=== PATIENT | male | born 1960 | race Caucasian/White ===

== ENCOUNTER 2017-03-16 12:58 | Emergency (ER) | payer MEDICAID ==
[2017-03-16] MEDS ORDERED: ONDANSETRON 4 MG/2 ML VIAL IVP ONE (14:33)
[2017-03-16 14:37] LABS: ANION GAP 18 mEq/L (8-16); CALCIUM 9.8 mg/dL (8.5-10.4); CARBON DIOXIDE 19 mEq/l (22-31); CHLORIDE 101 mEq/L (97-110); CREATININE 0.8 mg/dL (0.7-1.3); GLOMERULAR FILTRATION RATE > 60; GLUCOSE 92 mg/dL (70-100); POTASSIUM 4.2 mEq/L (3.5-5.2); SODIUM 138 mEq/L (134-144)
--- NOTE | 2017-03-16 14:37 | EDPHY ---
General Narrative: CHIEF COMPLAINT: Abdominal pain HISTORY OF PRESENT ILLNESS: Patient complains of lower abdominal pain. This started on Tuesday. It has been constant duration. Moderate to severe. Associated with some constipation mild nausea. No vomiting. No bright red blood per rectum. No chest pain or shortness of breath. No upper abdominal pain. Heavy drinking on Tuesday with some fast food eating. He feels that may been related. He tried some laxatives and did produce some clear liquid stool but no resolution of symptoms. No urinary complaints. No other associated complaints or modifying factors. Normal colonoscopy with small polyps removed 5 years ago. REVIEW OF SYSTEMS: Ten systems reviewed and are negative unless otherwise noted in the HPI PCP: Dr. Root SPECIALISTS: None PAST MEDICAL HISTORY: Hypertension PAST SURGICAL HISTORY: None SOCIAL HISTORY: Former smoker, quit 6 years ago. Occasional alcohol marijuana use. FAMILY HISTORY: Noncontributory EXAMINATION General Appearance: Alert, no distress Head: normocephalic, atraumatic Eyes: Pupils equal and round, no conjunctival pallor or injection ENT, Mouth: Mucous membranes moist. Airway patent Neck: Normal inspection, supple, non-tender Respiratory: Lungs are clear to auscultation. No wheeze, rhonchi or crackles Cardiovascular: Regular rate and rhythm. No murmur Gastrointestinal: Obese abdomen is soft. No tympany rigidity. There is tenderness in the lower abdominal quadrants. No rigidity. Mild guarding in the suprapubic region. Neurological: A&O, nonfocal Skin: Warm and dry, no rash. No petechiae or purpura. No ecchymosis of the abdomen Extremities: Nontender, no pedal edema. Psychiatric: Mood and affect normal DIFFERENTIAL DIAGNOSES: Including but not limited to diverticulitis, colitis, constipation, obstipation , small-bowel obstruction, colonic obstruction, volvulus, bladder calculus MDM: 2:35 p.m. Lower abdominal pain of 2 days duration. No flank pain. Obese abdomen difficult to definitively examine. I have ordered CT scan of the abdomen pelvis. CBC and chemistry pending. I have added a lipase, urinalysis and liver function. Pain medication ordered. He is in no acute distress and resting relatively comfortably at this time. 3:30 p.m. Laboratory studies reveal a mild leukocytosis. Chemistries unremarkable. CT scan pending. 3:[address] as reviewed by me reveal some diverticulitis with stranding but no abscess. Interpretation pending. 4:05 p.m. Contacted by radiologist Dr. Randhawa. CT scan findings discussed. There is diverticulitis without perforation or abscess. Incidental note of a 5 mm right middle lobe nodule recommend routine follow-up for this and surveillance. Also incidental 3.6 nodule on the right adrenal gland, likely adenoma that will also need outpatient follow-up. Also a bladder cyst or diverticulum that will need outpatient follow-up. 4:15 p.m. Patient re-evaluated. I discussed the findings of the CT scan including the incidental note. I recommend that he follow up with Dr. Root to monitor these. He voices understanding of this. I also discussed the diverticulitis and the need for antibiotic therapy. I offered admission to the hospital for pain control antibiotic therapy. He has declined. He would like to go home. I do feel that he is stable for discharge home, but we had a very lengthy discussion regarding possibility outpatient failure and worsening of his condition. He is willing to assume these risks and go home with pain medication, Cipro and Flagyl. We discussed ED precautions and is comfortable with this plan. He will follow up with primary care physician for all the above. He will also follow up with general surgeon. Discharged home stable condition. - History Smoking Status: Never smoked - Objective Vital Signs: Initial Vital Signs Temperature (C) 100.0 F 03/16/17 13:03 Heart Rate 77 03/16/17 13:03 Respiratory Rate 18 03/16/17 13:03 Blood Pressure 142/93 H 03/16/17 13:03 O2 Sat (%) 95 03/16/17 13:03 O2 Delivery Mode Room Air Allergies/Adverse Reactions: penicillin V potassium [From Pen-Vee K] Allergy (Verified 03/16/17 13:02) Home Medications: Medication Instructions Recorded Atorvastatin Calcium 03/16/17 Ciprofloxacin [Cipro] 500 mg PO BID #20 tab 03/16/17 Ciprofloxacin [Cipro] 500 mg PO TID #30 tab 03/16/17 Lisinopril 03/16/17 oxyCODONE HCL/ACETAMINOPHEN 1 each PO Q4-6PRN PRN #15 tablet 03/16/17 [Percocet 5-325 mg Tablet] Laboratory Results: Laboratory Results 03/16/17 14:05 03/16/17 14:05 03/16/17 03/16/17 14:05 14:05 WBC 15.66 10^3/uL H 10^3/uL (3.80-9.50) RBC 5.38 10^6/uL 10^6/uL (4.40-6.38) Hgb 17.5 g/dL g/dL (13.7-17.5) Hct 47.6 % % (40.0-51.0) MCV 88.5 fL fL (81.5-99.8) MCH 32.5 pg pg (27.9-34.1) MCHC 36.8 g/dL H g/dL (32.4-36.7) RDW 12.8 % % (11.5-15.2) Plt Count 246 10^3/uL 10^3/uL (150-400) MPV 10.3 fL fL (8.7-11.7) Neut % (Auto) 82.5 % H % (39.3-74.2) Lymph % (Auto) 7.6 % L % (15.0-45.0) [place] % (Auto) 8.3 % % (4.5-13.0) Eos % (Auto) 0.8 % % (0.6-7.6) Baso % (Auto) 0.5 % % (0.3-1.7) Nucleat RBC Rel Count 0.0 % % (0.0-0.2) Absolute Neuts (auto) 12.91 10^3/uL H 10^3/uL (1.70-6.50) Absolute Lymphs (auto) 1.19 10^3/uL 10^3/uL (1.00-3.00) Absolute Monos (auto) 1.30 10^3/uL H 10^3/uL (0.30-0.80) Absolute Eos (auto) 0.13 10^3/uL 10^3/uL (0.03-0.40) Absolute Basos (auto) 0.08 10^3/uL 10^3/uL (0.02-0.10) Absolute Nucleated RBC 0.00 10^3/uL 10^3/uL (0-0.01) Immature Gran % 0.3 % % (0.0-1.1) Immature Gran # 0.05 10^3/uL 10^3/uL (0.00-0.10) Sodium 138 mEq/L mEq/L (134-144) Potassium 4.2 mEq/L mEq/L (3.5-5.2) Chloride 101 mEq/L mEq/L (97-110) Carbon Dioxide 19 mEq/l L mEq/l (22-31) Anion Gap 18 mEq/L H mEq/L (8-16) BUN 12 mg/dL mg/dL (7-23) Creatinine 0.8 mg/dL mg/dL (0.7-1.3) Estimated GFR > 60 Glucose 92 mg/dL mg/dL (70-100) Calcium 9.8 mg/dL mg/dL (8.5-10.4) Total Bilirubin 1.4 mg/dL mg/dL (0.1-1.4) Conjugated Bilirubin 0.3 mg/dL mg/dL (0.0-0.5) Unconjugated Bilirubin 1.1 mg/dL mg/dL (0.0-1.1) AST 42 IU/L IU/L (17-59) ALT 72 IU/L IU/L (21-72) Alkaline Phosphatase 119 IU/L IU/L (38-126) Total Protein 7.1 g/dL g/dL (6.3-8.2) Albumin 4.8 g/dL g/dL (3.5-5.0) Lipase 88 IU/L IU/L (23-300) Medications Given: Discontinued Medications Morphine Sulfate (Morphine) 6 mg IVP EDNOW ONE Stop: 03/16/17 14:34 Last Admin: 03/16/17 14:58 Dose: 6 mg Ondansetron HCl (Zofran) 4 mg IVP EDNOW ONE Stop: 03/16/17 14:34 Last Admin: 03/16/17 14:58 Dose: 4 mg Departure - Departure Disposition: Home, Routine, Self-Care Clinical Impression: Sigmoid diverticulitis, Adrenal nodule, Lung nodule < 6cm on CT Condition: Good Instructions: Diverticulitis (ED), Diverticulitis Diet (ED), Pulmonary Nodules (ED) Additional Instructions: 1. Pain medication as prescribed as needed 2. Diverticular diet as printed 3. Antibiotics as prescribed to completion 4. Contact primary care physician for follow-up for the diverticulitis, the pulmonary nodule, the adrenal nodule 5. ED precautions as discussed Referrals: Genoveva Root [Primary Care Provider] - As per Instructions Prescriptions: Ciprofloxacin [Cipro] 500 mg PO BID #20 tab Ciprofloxacin [Cipro] 500 mg PO TID #30 tab oxyCODONE HCL/ACETAMINOPHEN [Percocet 5-325 mg Tablet] 1 each PO Q4-6PRN PRN # 15 tablet PRN Reason: Pain, Breakthrough
[2017-03-16 14:46] LABS: % IMMATURE GRANULYOCYTES 0.3 % (0.0-1.1); ABSOLUTE IMMATURE GRANULOCYTES 0.05 10^3/uL (0.00-0.10); ADD DIFF? NO; ADD MORPH? NO; ADD SCAN? NO; ATYPICAL LYMPHOCYTE FLAG 0 (0-99); FRAGMENT RBC FLAG 0 (0-99); HEMATOCRIT 47.6 % (40.0-51.0); HEMOGLOBIN 17.5 g/dL (13.7-17.5); LEFT SHIFT FLG 0 (0-99); LIPEMIA HEMOLYSIS FLAG 90 (0-99); MEAN CELL HEMOGLOBIN 32.5 pg (27.9-34.1); MEAN CELL HEMOGLOBIN CONCENTR. 36.8 g/dL (32.4-36.7); MEAN CELL VOLUME 88.5 fL (81.5-99.8); MEAN PLATELET VOLUME 10.3 fL (8.7-11.7); PLATELET CLUMPS FLAG 0 (0-99); PLATELET COUNT 246 10^3/uL (150-400); RED BLOOD CELL COUNT 5.38 10^6/uL (4.40-6.38); RED CELL DISTRIBUTION WIDTH 12.8 % (11.5-15.2)
[2017-03-16 15:03] LABS: ALANINE AMINOTRANSFERASE 72 IU/L (21-72); ALBUMIN 4.8 g/dL (3.5-5.0); ALKALINE PHOSPHATASE 119 IU/L (38-126); ASPARTATE AMINOTRANSFERASE 42 IU/L (17-59); BILIRUBIN,TOTAL 1.4 mg/dL (0.1-1.4); BILIRUBIN-CONJUGATED 0.3 mg/dL (0.0-0.5); BILIRUBIN-UNCONJUGATED 1.1 mg/dL (0.0-1.1); TOTAL PROTEIN 7.1 g/dL (6.3-8.2)
[2017-03-16 15:16] VITALS: RESP 16
[2017-03-16] MEDS ORDERED: IOPAMIDOL (ISOVUE-300) 100 ML BTL ONE (15:26)
[2017-03-16 16:26] VITALS: PULSE 74
[2017-03-16 16:59] LABS: COLOR YELLOW; LEUKOCYTE ESTERASE,URINE NEGATIVE (NEGATIVE); MUCUS TRACE /lpf (NONE-1+); NITRITE,URINE NEGATIVE (NEGATIVE)
[2017-03-16] MEDS ORDERED: OXYCODONE/APAP 5/325 TAB ONE (17:10)
[2017-03-16] MEDS ORDERED: OXYCODONE/APAP 5/325 TAB PO ONE (17:13)
[2017-03-16 17:22] VITALS: BP 125/70; TEMP 98.4; O2SAT 96
== END 2017-03-16 17:22 | disposition home or self-care (01) ==
DX: K57.32 Diverticulitis of large intestine without perforation or abscess without bleeding (principal); E27.8 Other specified disorders of adrenal gland; R91.1 Solitary pulmonary nodule; I10 Essential (primary) hypertension; Z87.891 Personal history of nicotine dependence
CPT/HCPCS: 96374; J2405; Q9967

== ENCOUNTER 2018-04-05 12:10 | Emergency (ER) | payer MEDICAID ==
--- NOTE | 2018-04-05 13:31 | EDPHY ---
H & P Stated Complaint: fell off skateboard hit head, R wrist, L shoulder pain -no loc no helmet Time Seen by Provider: 04/05/18 13:18 HPI/ROS: CHIEF COMPLAINT: Fall off of skateboard, multiple complaints HISTORY OF PRESENT ILLNESS: 58-year-old male via private vehicle, no anticoagulant use history, states yesterday at 5:45 p.m. After having drank some alcohol he was riding skateboard, helmeted, sustained a mechanical fall impacting his left frontal region with no loss of consciousness, no amnesia. He woke complaining of right wrist, left elbow, left shoulder, left hip pain. He is able to bear weight albeit with pain to the greater trochanter region. He denies: Nausea vomiting, midline C-spine pain, peripheral paresthesia, weakness, numbness, abdominal pain or trauma, chest pain or trauma, dyspnea. PRIMARY CARE PROVIDER: [facility] Genoveva Root REVIEW OF SYSTEMS: 10 systems reviewed and negative with the exception of the elements mentioned in the history of present illness PAST MEDICAL/SURGICAL HISTORY: no anticoagulant use, no relevant medical/ surgical history SOCIAL HISTORY: Positive for alcohol use at time of incident PHYSICAL EXAM 1) GENERAL: Well-developed, well-nourished, alert and oriented. Appears to be in no acute distress. Answering questions appropriately. GCS 15 2) HEAD: Normocephalic, left frontal abrasion. No hematoma. 3) HEENT: Pupils equal, round, reactive to light bilaterally. Negative Horners. Nasopharynx, oropharynx, clear. No deformity or angulation of nose. No septal hematoma. No rhinorrhea. No oral trauma. Ears bilaterally with normal tympanic membranes. No hemotympanum. No fluid or blood in the external auditory canal. No raccoon eyes. No Sharif sign. Teeth are normally aligned with no gross malocclusion, TMJ bilaterally nontender, facial bones nontender including the zygomatic arch, maxilla mandible. 4) NECK: No cervical collar is on. Posterior cervical spine is nontender, no stepoff, no effusion. Full range of motion which does not elicit any midline cervical spine pain, no posterior midline tenderness, no step-off. 5) LUNGS: Clear to auscultation bilaterally, no wheezes, no rhonchi, no retractions. No obvious signs of trauma. No chest wall pain. No flaring, no grunting. Moving symmetrically. No crepitus. 6) HEART: [Regular rate and rhythm, 7) ABDOMEN: No guarding, no rebound, no focal tenderness, no peritoneal signs, no signs of trauma, no ecchymosis 8) MUSCULOSKELETAL: Left upper extremity: Tender to palpation left elbow with limited range of motion secondary to pain. No visible trauma. Tender to palpation left shoulder with no visible signs of trauma. Limited range of motion secondary to pain. Otherwise distal pulses are brisk with normal coloration. Wrist hand nontender. Right upper extremity: Tender to palpation right distal radius and anatomic snuffbox with radial ulnar median nerve function intact. No visible signs of trauma. No abrasion or laceration or puncture wound. Otherwise proximally nontender. Left lower extremity: Tender to palpation left greater trochanter region with no shortening no malrotation, limited range of motion secondary to pain. No inguinal pain with range of motion. Distal DP PT pulses present and brisk. Right lower extremity: No signs of trauma no tenderness. 9) BACK: No midline vertebral tenderness, no fluctuance, no step-off, no obvious trauma, no visual or palpable abnormality. 10) SKIN: No laceration. Left frontal abrasion 11) NEURO: Awake, alert, and oriented to person, place and time. Answers questions appropriately. There were no obvious focal neurologic abnormalities. No cerebellar dysfunction. Cranial nerves 2 through to 12 intact. Normal steady gait. Upper and lower extremities bilaterally with strength 5 / 5, reflexes 2+. DIFFERENTIAL DIAGNOSIS: In no particular order including but not limited to fracture, sprain, strain, dislocation - Personal History Current Tetanus/Diphtheria Vaccine: Yes Current Tetanus Diphtheria and Acellular Pertussis (TDAP): Yes Tetanus Vaccine Date: 2014 - Medical/Surgical History Hx Asthma: No Hx Chronic Respiratory Disease: No Hx Diabetes: No Hx Cardiac Disease: No Hx Renal Disease: No Hx Cirrhosis: No Hx Alcoholism: No Hx HIV/AIDS: No Hx Splenectomy or Spleen Trauma: No Other PMH: L WRIST FX/HTN, hyperlipdemia, R humerus fx - Social History Smoking Status: Current some day smoker Constitutional: Initial Vital Signs Heart Rate 76 04/05/18 12:20 Respiratory Rate 18 04/05/18 12:20 Blood Pressure 155/89 H 04/05/18 12:20 O2 Sat (%) 97 04/05/18 12:20 O2 Delivery Mode Room Air O2 (L/minute) 36.7 Allergies/Adverse Reactions: penicillin V potassium [From Pen-Vee K] Allergy (Verified 03/16/17 13:02) Home Medications: Medication Instructions Recorded Atorvastatin Calcium 04/05/18 Lisinopril 04/05/18 Medical Decision Making - Diagnostics Imaging Results: Imaging Impressions Wrist X-Ray 04/05/18 12:44 Impression: No acute osseous findings. Elbow X-Ray 04/05/18 13:37 Impression: Minimally displaced medial epicondyle avulsion fracture. Hip X-Ray 04/05/18 13:37 Impression: No acute osseous findings. Shoulder X-Ray 04/05/18 13:37 Impression: No acute findings in the shoulder. Images reviewed myself Procedures: Procedure: Splint A left upper extremity sling and right wrist Velcro thumb spica splint was applied by ER remote sensing technician. After application of the splint I returned and re- examined the patient. The splint was adequately immobilizing the joint and distal to the splint the patient's circulation and sensation were intact. Patient shows no signs of compartment syndrome. Was given orthopedic precautions. ED Course/Re-evaluation: 1:30 p.m.: Negative American head and C-spine decision-making tools. I do not think that imaging of the head and her C-spine indicated at this time. Will obtain x-rays the peripheral musculoskeletal system. 2:31 p.m.: Re-evaluation. Discussed with the patient his imaging results. He has an avulsion fracture of the left elbow. He has been placed in a splint. Discussed limitations of x-ray. Stressed the importance of follow-up with orthopedics. Given this follow-up information. He is answering questions appropriately. He is given my usual and customary orthopedic precautions instructions. Care of patient under supervision of secondary supervising physician Dr Ojeda . Departure - Departure Disposition: Home, Routine, Self-Care Clinical Impression: Left hip pain Fall from skateboard Qualifiers: Encounter type: initial encounter Qualified Code(s): V00.131A - Fall from skateboard, initial encounter Left elbow fracture Qualifiers: Encounter type: initial encounter Fracture type: closed Qualified Code(s): S42.402A - Unspecified fracture of lower end of left humerus, initial encounter for closed fracture Sprain of left shoulder Qualifiers: Encounter type: initial encounter Shoulder sprain type: unspecified sprain Qualified Code(s): S43.402A - Unspecified sprain of left shoulder joint, initial encounter Right wrist sprain Qualifiers: Encounter type: initial encounter Qualified Code(s): S63.501A - Unspecified sprain of right wrist, initial encounter Condition: Good Instructions: Hip Pain (ED), Elbow Fracture (ED), Shoulder Sprain (ED), Wrist Sprain (ED) Additional Instructions: Return to the ER immediately if you experience discoloration, have worsening pain, numbness, tingling, or any other symptoms that concern you. If you received x-rays in the emergency department today, be advised, that ligamentous , tendon, muscular, and other non-bony injury cannot be fully ruled out. Try to keep your affected extremity elevated above the level of your chest, and keep cold packs on the affected area, for the next 48 hours. Adult Pain & Fever Control: We recommend Acetaminophen (Tylenol) and Ibuprofen (Motrin,Advil) for pain and fever control. When fever is high or pain severe, both drugs can be used at the same time, but at different intervals. Please note the time differences. Your dose is: Acetaminophen 650mg every 4 to 6 hours Ibuprofen 600mg every 6 hours with food OR Note: do not take Acetaminophen with Hydrocodone (Vicodin, Lortab) or Oycodone (Percocet). These medications also contain Acetaminophen. No more than 3000mg of Acetaminophen should be taken in 24 hours (for an adult). Referrals: Yung Olguin MD [Medical Doctor] - 1-2 days without fail
[2018-04-05] MEDS ORDERED: IBUPROFEN 600 MG TAB PO ONE (14:34)
[2018-04-05 14:44] VITALS: BP 149/80
== END 2018-04-05 14:42 | disposition home or self-care (01) ==
DX: S42.402A Unspecified fracture of lower end of left humerus, initial encounter for closed fracture (principal); M25.512 Pain in left shoulder; M25.531 Pain in right wrist; V00.131A Fall from skateboard, initial encounter; Y92.480 Sidewalk as the place of occurrence of the external cause
CPT/HCPCS: A4565; L3807

== ENCOUNTER 2018-08-09 17:04 | Emergency (ER) | payer MEDICAID ==
--- NOTE | 2018-08-09 17:27 | EDPHY ---
H & P Time Seen by Provider: 08/09/18 17:27 HPI/ROS: CHIEF COMPLAINT: Abdominal pain HISTORY OF PRESENT ILLNESS: History of diverticulitis February of 2017 feels identical. About 2 weeks ago he had similar symptoms but he thought it was due to eating too many red meats takes and went on a kendrick burrito diet negative better. 2 days ago the symptoms return. Left lower quadrant abdominal pain associated with nausea, intermittent diarrhea and then constipation. Symptoms moderate, do not radiate, no urinary symptoms. Not better or worse with anything. REVIEW OF SYSTEMS: Eye: no change in vision ENT: no sore throat Cardiac: no chest pain or syncope Pulmonary: no cough or SOB Abdomen: HPI Musculoskeletal: no back pain Skin: no rash Neuro: no headache Constitutional: no fever : no urinary symptoms A comprehensive 10 point review of systems is otherwise negative aside from elements mentioned in the history of present illness. PAST MEDICAL HISTORY: Diverticulitis February of 2017, hyperlipidemia, left wrist and right humerus fracture Social history: General Appearance: Alert and conversant, cooperative. Eyes: No scleral icterus. ENT, Mouth: Slightly dry mucous membranes. Respiratory: Normal respiratory effort, breath sounds equal, lungs are clear to auscultation. Cardiovascular: Regular rate and rhythm. Gastrointestinal: Left lower quadrant tenderness without rebound or guarding, bowel sounds present. Neurological: Alert, face symmetric, normal motor and sensory in extremities. Skin: Warm and dry, no rashes. Musculoskeletal: No peripheral edema. Psychiatric: Not agitated. Emergency Department course/MDM: Likely diverticulitis. At this point low suspicion for perforation or abscess, low suspicion for appendicitis or bowel obstruction. Not febrile or tachycardic and no rebound or guarding. Patient would prefer treatment without further imaging which I think is reasonable. Normal saline 2 L IV, fentanyl 100 mcg and Zofran 4, Cipro 500 and Flagyl 500 orally. 1900: Feels better stable for discharge. Smoking Status: Current some day smoker Constitutional: Initial Vital Signs Temperature (C) 37.4 C 08/09/18 17:17 Heart Rate 70 08/09/18 17:17 Respiratory Rate 18 08/09/18 17:17 Blood Pressure 119/87 H 08/09/18 17:17 O2 Sat (%) 97 08/09/18 17:17 O2 Delivery Mode Nasal Cannula O2 (L/minute) 2 Allergies/Adverse Reactions: penicillin V potassium [From [facility]] Allergy (Verified 03/16/17 13:02) Home Medications: Medication Instructions Recorded Atorvastatin Calcium 04/05/18 Lisinopril 04/05/18 Ciprofloxacin [Cipro] 500 mg PO BID #20 tab 08/09/18 metroNIDAZOLE [Metronidazole] 500 mg PO Q8H #30 tab 08/09/18 Medical Decision Making - Data Points Laboratory Results: Laboratory Results 08/09/18 17:50 08/09/18 17:50 08/09/18 08/09/18 17:50 17:50 WBC 8.06 10^3/uL 10^3/uL (3.80-9.50) RBC 5.28 10^6/uL 10^6/uL (4.40-6.38) Hgb 16.8 g/dL g/dL (13.7-17.5) Hct 46.6 % % (40.0-51.0) MCV 88.3 fL fL (81.5-99.8) MCH 31.8 pg pg (27.9-34.1) MCHC 36.1 g/dL g/dL (32.4-36.7) RDW 13.0 % % (11.5-15.2) Plt Count 208 10^3/uL 10^3/uL (150-400) MPV 9.8 fL fL (8.7-11.7) Neut % (Auto) 71.1 % % (39.3-74.2) Lymph % (Auto) 10.5 % L % (15.0-45.0) [place] % (Auto) 16.5 % H % (4.5-13.0) Eos % (Auto) 1.0 % % (0.6-7.6) Baso % (Auto) 0.7 % % (0.3-1.7) Nucleat RBC Rel Count 0.0 % % (0.0-0.2) Absolute Neuts (auto) 5.72 10^3/uL 10^3/uL (1.70-6.50) Absolute Lymphs (auto) 0.85 10^3/uL L 10^3/uL (1.00-3.00) Absolute Monos (auto) 1.33 10^3/uL H 10^3/uL (0.30-0.80) Absolute Eos (auto) 0.08 10^3/uL 10^3/uL (0.03-0.40) Absolute Basos (auto) 0.06 10^3/uL 10^3/uL (0.02-0.10) Absolute Nucleated RBC 0.00 10^3/uL 10^3/uL (0-0.01) Immature Gran % 0.2 % % (0.0-1.1) Immature Gran # 0.02 10^3/uL 10^3/uL (0.00-0.10) Sodium 134 mEq/L L mEq/L (135-145) Potassium 4.2 mEq/L mEq/L (3.5-5.2) Chloride 102 mEq/L mEq/L (97-110) Carbon Dioxide 19 mEq/l L mEq/l (22-31) Anion Gap 13 mEq/L mEq/L (6-14) BUN 14 mg/dL mg/dL (7-23) Creatinine 0.8 mg/dL mg/dL (0.7-1.3) Estimated GFR > 60 Glucose 102 mg/dL H mg/dL (70-100) Calcium 9.4 mg/dL mg/dL (8.5-10.4) Medications Given: Discontinued Medications Hydrocodone Bitart/Acetaminophen ([place] 5/325mg Prepack#6) 1 btl TAKEHOME EDNOW ONE Stop: 08/09/18 19:10 Last Admin: 08/09/18 19:17 Dose: 1 btl Ciprofloxacin (Cipro) 500 mg PO EDNOW ONE PRN Reason: Protocol Stop: 08/09/18 17:42 Last Admin: 08/09/18 18:00 Dose: 500 mg Fentanyl (Sublimaze) 100 mcg IVP EDNOW ONE Stop: 08/09/18 17:41 Last Admin: 08/09/18 17:55 Dose: 100 mcg Sodium Chloride (Ns) 1,000 mls @ 0 mls/hr IV EDNOW ONE; Wide Open PRN Reason: Protocol Stop: 08/09/18 17:41 Last Admin: 08/09/18 17:51 Dose: 1,000 mls Sodium Chloride (Ns) 1,000 mls @ 0 mls/hr IV EDNOW ONE; Wide Open PRN Reason: Protocol Stop: 08/09/18 17:41 Last Admin: 08/09/18 18:01 Dose: 1,000 mls Metronidazole (Flagyl) 500 mg PO EDNOW ONE PRN Reason: Protocol Stop: 08/09/18 17:42 Last Admin: 08/09/18 18:00 Dose: 500 mg Ondansetron HCl (Zofran) 4 mg IVP EDNOW ONE Stop: 08/09/18 17:41 Last Admin: 08/09/18 17:55 Dose: 4 mg Departure - Departure Disposition: Home, Routine, Self-Care Clinical Impression: Diverticulitis Condition: Good Instructions: Hydrocodone/Acetaminophen (By mouth), Diverticulitis (ED) Referrals: Genoveva Root [Primary Care Provider] - As per Instructions Prescriptions: Ciprofloxacin [Cipro] 500 mg PO BID #20 tab metroNIDAZOLE [Metronidazole] 500 mg PO Q8H #30 tab
[2018-08-09] MEDS ORDERED: fentaNYL 100 MCG/2 ML INJ IVP ONE (17:40)
[2018-08-09] MEDS ORDERED: ONDANSETRON 4 MG/2 ML VIAL IVP ONE (17:40)
[2018-08-09] MEDS ORDERED: NS 1,000 ML IV ONE ×2 (17:40)
[2018-08-09] MEDS ORDERED: CIPROFLOXACIN 500 MG TAB PO ONE (17:41)
[2018-08-09] MEDS ORDERED: metroNIDAZOLE 500 MG TAB PO ONE (17:41)
[2018-08-09 18:04] LABS: PLATELET COUNT 208 10^3/uL (150-400)
[2018-08-09] MEDS ORDERED: HYDROCOD/APAP 5/325 PREPACK#6 BTL TAKEHOME ONE (19:09)
[2018-08-09 19:11] VITALS: BP 112/71
== END 2018-08-09 19:23 | disposition home or self-care (01) ==
DX: K57.92 Diverticulitis of intestine, part unspecified, without perforation or abscess without bleeding (principal); E86.9 Volume depletion, unspecified
CPT/HCPCS: 96374; J2405; J3010